=== PATIENT | male | born 1960 | race Two or more races ===

== ENCOUNTER → 2019-01-22 | Outpatient (CLI) | payer OTHER | END | disposition home or self-care (01) | LOC: SONOGRAMA 14:18 | DX: E04.2 Nontoxic multinodular goiter (principal) ==

== ENCOUNTER 2019-01-27 10:27 | Outpatient (CLI) | payer OTHER | END 2019-01-27 10:29 | disposition home or self-care (01) | LOC: SONOGRAMA 10:27 | DX: R94.5 Abnormal results of liver function studies (principal) ==

== ENCOUNTER 2019-02-24 10:13 | Outpatient (CLI) | payer OTHER | END 2019-02-24 14:46 | disposition home or self-care (01) | LOC: TOM 10:13 | DX: N39.0 Urinary tract infection, site not specified (principal) ==

== ENCOUNTER 2019-03-16 10:57 | Outpatient (CLI) | payer OTHER | END 2019-03-16 15:00 | disposition home or self-care (01) | LOC: LAB 10:57 | DX: N20.0 Calculus of kidney (principal) ==

== ENCOUNTER 2019-03-23 08:39 | Outpatient (CLI) | payer OTHER | END 2019-03-23 08:45 | disposition home or self-care (01) | LOC: TOM 08:39 | DX: K76.89 Other specified diseases of liver (principal) ==

== ENCOUNTER → 2019-04-01 07:58 | Outpatient (CLI) | payer OTHER | END | disposition home or self-care (01) | LOC: LAB 07:58 | DX: R74.0 Nonspecific elevation of levels of transaminase and lactic acid dehydrogenase [LDH] (principal); Z12.11 Encounter for screening for malignant neoplasm of colon; R19.5 Other fecal abnormalities; K76.0 Fatty (change of) liver, not elsewhere classified ==

== ENCOUNTER 2020-01-18 08:44 | Outpatient (CLI) | payer OTHER | END 2020-01-18 08:57 | disposition home or self-care (01) | LOC: SONOGRAMA 08:44 → MAMO-SONO 08:45 → SONOGRAMA 08:57 | PROVIDERS: ATTEND Internal Medicine | DX: R10.2 Pelvic and perineal pain (principal); R10.10 Upper abdominal pain, unspecified ==

== ENCOUNTER 2020-01-25 08:55 | Outpatient (CLI) | payer OTHER | END 2020-01-25 08:58 | disposition home or self-care (01) | LOC: NUCLEAR 08:55 | PROVIDERS: ATTEND Internal Medicine | DX: I73.9 Peripheral vascular disease, unspecified (principal) ==

== ENCOUNTER 2020-01-27 08:58 | Outpatient (CLI) | payer OTHER | END 2020-01-27 09:00 | disposition home or self-care (01) | LOC: NUCLEAR 08:58 | PROVIDERS: ATTEND Internal Medicine | DX: I87.2 Venous insufficiency (chronic) (peripheral) (principal) ==

== ENCOUNTER 2020-03-21 11:41 | Outpatient (CLI) | payer OTHER | END 2020-03-21 15:59 | disposition home or self-care (01) | LOC: NUCLEAR 11:41 | PROVIDERS: ATTEND Internal Medicine | DX: M81.0 Age-related osteoporosis without current pathological fracture (principal) ==